=== PATIENT | female | born 1990 | race Two or more races ===

== ENCOUNTER 2023-08-26 21:26 | Emergency (ER) | payer OTHER ==
[~2023-08-26] VITALS: Ht 170.2 cm; Wt 75.0 kg
[2023-08-26 21:59] LABS: Basophils # (auto) 0.1 10 ^3/uL (0-0.2); Basophils % (auto) 0.6 % (0.0-2.0); Eosinophils # (auto) 0.2 10 ^3/uL (0-0.8); Eosinophils % (auto) 1.5 % (0.0-7.0); Hematocrit 41.9 % (36.0-46.0); Hemoglobin 13.9 g/dL (12.2-16.2); Lymphocytes % (auto) 20.3 % (10.0-50.0); Mean Corpuscular Hemoglobin 27.1 pg (28.0-32.0); Mean Corpuscular Hgb Conc. 33.2 g/dL (32.0-36.0); Mean Corpuscular Volume 81.6 fL (80.0-100.0); Monocytes # (auto) 0.6 10 ^3/uL (0-1.3); Monocytes % (auto) 5.7 % (0.0-12.0); Neutrophils # (auto) 7.1 10 ^3/uL (1.6-8.6); Neutrophils % (auto) 71.9 % (37.0-80.0); Nucleated Red Blood Cells % 0.2 %; Red Blood Cells 5.14 10^6/uL (4.0-5.20); Red Cell Distribution Width 14.2 % (11.8-14.3); White Blood Cell 9.8 10^3/uL (4.4-10.8)
[2023-08-26 22:07] LABS: Chloride 105 mmol/L (98-107); Potassium 3.6 mmol/L (3.5-5.1); Sodium 139 mmol/L (136-145)
[2023-08-26 22:08] LABS: Anion Gap 6 (5-15); Calcium 10.2 mg/dL (8.7-10.4); Carbon Dioxide 28 mmol/L (20-30)
[2023-08-26 22:13] LABS: Glucose 100 mg/dL (74-106)
[2023-08-26 22:17] LABS: BUN/Creatinine Ratio 6.8 (10.0-20.0); Blood Urea Nitrogen < 5 mg/dL (9-23)
[2023-08-26 23:05] VITALS: BP 144/86; PULSE 70; RESP 18; TEMP 98.4; O2SAT 96
[2023-08-27 01:04] LABS: Urine Bacteria None Seen /hpf (None Seen); Urine WBC None Seen /hpf (0 - 5)
[2023-08-27 02:17] LABS: Urine Blood Negative /uL (Negative); Urine Clarity Clear (Clear); Urine Protein, UAD Negative (Negative); Urine Specific Gravity 1.003 (1.001-1.035); Urine Urobilinogen Normal (Negative); Urine pH 7.5 (5.0-9.0)
[2023-08-27 02:22] LABS: Urine Color Straw (Yellow)
== END 2023-08-26 23:07 | disposition home or self-care (01) ==
LOC: ER 21:26
DX: R07.89 Other chest pain (principal); K76.0 Fatty (change of) liver, not elsewhere classified; F19.10 Other psychoactive substance abuse, uncomplicated; F17.290 Nicotine dependence, other tobacco product, uncomplicated; Z90.49 Acquired absence of other specified parts of digestive tract
CPT/HCPCS: 36415; 71046; 80048; 81001; 84484; 85025

== ENCOUNTER 2023-10-01 13:43 | Emergency (ER) | payer OTHER ==
[~2023-10-01] VITALS: Ht 170.2 cm; Wt 74.5 kg
[2023-10-01 14:32] VITALS: BP 121/85; PULSE 79; RESP 19; TEMP 99.1; O2SAT 98
[2023-10-01 15:03] LABS: Basophils # (auto) 0.1 10 ^3/uL (0-0.2); Basophils % (auto) 1.1 % (0.0-2.0); Eosinophils # (auto) 0 10 ^3/uL (0-0.8); Eosinophils % (auto) 0.5 % (0.0-7.0); Hematocrit 39.2 % (36.0-46.0); Lymphocytes # (auto) 1.6 10 ^3/uL (0.4-5.4); Lymphocytes % (auto) 19.2 % (10.0-50.0); Mean Corpuscular Hemoglobin 27.2 pg (28.0-32.0); Mean Corpuscular Hgb Conc. 33.2 g/dL (32.0-36.0); Mean Corpuscular Volume 81.9 fL (80.0-100.0); Monocytes # (auto) 0.4 10 ^3/uL (0-1.3); Monocytes % (auto) 5.3 % (0.0-12.0); Neutrophils % (auto) 73.9 % (37.0-80.0); Nucleated Red Blood Cells % 0.1 %; Red Blood Cells 4.79 10^6/uL (4.0-5.20); Red Cell Distribution Width 13.9 % (11.8-14.3); White Blood Cell 8.1 10^3/uL (4.4-10.8)
[2023-10-01 15:18] LABS: Alanine Aminotransferase 16 U/L (7-40); Alkaline Phosphatase 68 U/L (46-116); Anion Gap 6 (5-15); Aspartate Aminotransferase 16 U/L (13-40); Calcium 9.4 mg/dL (8.5-10.1); Carbon Dioxide 26 mmol/L (20-30); Chloride 108 mmol/L (98-107); Glucose 100 mg/dL (74-106); Potassium 4.1 mmol/L (3.5-5.1); Sodium 140 mmol/L (136-145)
[2023-10-01 15:19] LABS: Albumin 4.6 g/dL (3.2-4.8); Bilirubin, Total 0.7 mg/dL (0.2-1.0); Total Protein 7.6 g/dL (5.7-8.2)
[2023-10-01 15:28] LABS: BUN/Creatinine Ratio 6.8 (10.0-20.0); Blood Urea Nitrogen < 5 mg/dL (9-23)
[2023-10-01] MEDS ORDERED: TAMS-35 PO (15:48)
[2023-10-01] MEDS ORDERED: IBUP-1456 PO (15:48)
[2023-10-01] MEDS: KETOROLAC TROMETH 60MG/2ML VIAL IM ONE (15:52)
[2023-10-01 16:00] LABS: Urine Bacteria FEW /hpf (None Seen); Urine Blood 2+ /uL (Negative); Urine Clarity Turbid (Clear); Urine Color Light-Yellow (Yellow); Urine Mucus FEW (None Seen); Urine Protein, UAD Negative (Negative); Urine Specific Gravity 1.012 (1.001-1.035); Urine Urobilinogen Normal (Negative); Urine WBC 17 /hpf (0 - 5); Urine pH 5.5 (5.0-9.0)
[2023-10-01] MEDS ORDERED: BACDST PO (16:04)
== END 2023-10-01 16:40 | disposition home or self-care (01) ==
LOC: ER 13:43
DX: K52.9 Noninfective gastroenteritis and colitis, unspecified (principal); N20.0 Calculus of kidney; N39.0 Urinary tract infection, site not specified; Z90.49 Acquired absence of other specified parts of digestive tract; Z88.0 Allergy status to penicillin
CPT/HCPCS: 36415; 74176; 80053; 81001; 83690; 85025; 96372; 99285; J1885

== ENCOUNTER 2023-10-15 20:12 | Emergency (ER) | payer OTHER ==
[~2023-10-15] VITALS: Ht 170.2 cm; Wt 75.5 kg
[~2023-10-15 20:12] MED LIST: BACDST PO; IBUP-1456 PO; TAMS-35 PO
[2023-10-15 20:34] VITALS: BP 136/91; PULSE 71; RESP 18; TEMP 98.8
[2023-10-15] MEDS ORDERED: BENZOCAINE (DENTAL)20% 1 SPR SPRAY MT ONE (22:15)
[2023-10-15] MEDS ORDERED: HYDR-4902 PO (22:19)
[2023-10-15 23:23] VITALS: O2SAT 97
[2023-10-16] MEDS: HYDROcodone-ACET 5/325MG TAB PO ONE (00:10)
[2023-10-16] MEDS: BENZOCAINE (DENTAL) 20 % SPRAY 60ML MT ONE (00:16)
[2023-10-16] MEDS ORDERED: HYDR-4902 PO (19:44)
== END 2023-10-16 00:22 | disposition home or self-care (01) ==
LOC: ER 20:12
DX: K00.6 Disturbances in tooth eruption (principal); R51.9 Headache, unspecified; Z88.0 Allergy status to penicillin; Z90.49 Acquired absence of other specified parts of digestive tract